=== PATIENT | female | born 1960 | race African-American/Black ===

== ENCOUNTER 2021-05-01 13:58 | Emergency (ER) | payer MEDICAID, SELFPAY ==
[2021-05-01 14:15] VITALS: BP 110/78; BP 118/70; PULSE 73; RESP 20; O2SAT 100; O2SAT 99; BMI 21.4
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
[2021-05-01] MEDS: Lidocaine 4 % Patch ADH..PATCH 1 PATCH TRANSDERMA (16:05)
[2021-05-01] MEDS: Cyclobenzaprine HCl 5 MG TABLET PO (16:05)
[2021-05-01] MEDS: Acetaminophen 325 MG TABLET 650 MG PO (16:05)
== END 2021-05-01 16:19 | disposition home or self-care (01) ==
PROVIDERS: Emergency Provider Emergency Medicine
DX: Z04.1 Encounter for examination and observation following transport accident (principal); M79.18 Myalgia, other site
CPT/HCPCS: 99283